=== PATIENT | female | born 1945 | race Caucasian/White ===

== ENCOUNTER 2016-10-22 09:51 | Emergency (ER) | payer OTHER ==
[~2016-10-22] VITALS: Ht 167.6 cm; Wt 90.7 kg
[2016-10-22] MEDS ORDERED: BACTRIM DS TAB1 EACH PO (10:35)
[2016-10-22] MEDS ORDERED: BYSTOLIC 5 MG5 M1 PO (10:38)
[2016-10-22] MEDS ORDERED: VESICARE10 M1 PO (10:38)
[2016-10-22] MEDS ORDERED: VENLAFAXIN75 MG/1 T2 PO (10:38)
[2016-10-22] MEDS ORDERED: APAP650 PO (10:39)
[2016-10-22 11:11] VITALS: BP 150/76
== END 2016-10-22 11:12 | disposition home or self-care (01) ==
LOC: ER 09:51
DX: L02.01 Cutaneous abscess of face (principal); I10 Essential (primary) hypertension; F32.9 Major depressive disorder, single episode, unspecified; Z96.653 Presence of artificial knee joint, bilateral